=== PATIENT | male | born 1950 | race Two or more races ===

== ENCOUNTER 2018-01-14 07:46 | Outpatient (CLI) | payer OTHER ==
[~2018-01-14 07:46] MED LIST: ALLOPURINOL PO; ASA81 MG PO; CARTIA XT300 MG PO; HYDROCHLOROTHIAZIDE PO; LIRICA; [UNRECOGNIZED DRUG - OTHER] PO
== END 2018-01-14 08:12 | disposition home or self-care (01) ==
LOC: TOM 07:46
DX: C64.2 Malignant neoplasm of left kidney, except renal pelvis (principal)

== ENCOUNTER 2018-01-14 07:48 | Outpatient (CLI) | payer OTHER | END 2018-01-14 08:11 | disposition home or self-care (01) | LOC: SONOGRAMA 07:48 | DX: C64.2 Malignant neoplasm of left kidney, except renal pelvis (principal) ==

== ENCOUNTER 2018-01-14 07:51 | Outpatient (CLI) | payer OTHER | END 2018-01-14 08:12 | disposition home or self-care (01) | LOC: RAD 07:51 | DX: C64.2 Malignant neoplasm of left kidney, except renal pelvis (principal) ==

== ENCOUNTER 2020-06-06 13:46 | Outpatient (CLI) | payer OTHER | END 2020-06-06 13:51 | disposition home or self-care (01) | LOC: LAB 13:46 | PROVIDERS: ATTEND Urology | DX: N40.0 Benign prostatic hyperplasia without lower urinary tract symptoms (principal); R97.20 Elevated prostate specific antigen [PSA]; C64.2 Malignant neoplasm of left kidney, except renal pelvis ==

== ENCOUNTER 2022-09-11 12:45 | Outpatient (CLI) | payer OTHER | END 2022-09-11 12:46 | disposition home or self-care (01) | LOC: LAB 12:45 | PROVIDERS: ATTEND Radiology Diagnostic Radiology | DX: N40.0 Benign prostatic hyperplasia without lower urinary tract symptoms (principal) ==

== ENCOUNTER 2022-09-17 07:18 | Outpatient (CLI) | payer OTHER | END 2022-09-17 12:58 | disposition home or self-care (01) | LOC: MRI 07:18 | PROVIDERS: ATTEND Urology | DX: N40.0 Benign prostatic hyperplasia without lower urinary tract symptoms (principal); R97.20 Elevated prostate specific antigen [PSA]; C64.2 Malignant neoplasm of left kidney, except renal pelvis | CPT/HCPCS: 74183; Q9965 ==